=== PATIENT | female | born 1975 | race Caucasian/White ===

== ENCOUNTER → 2019-03-26 10:31 | Outpatient (BNVA) | payer OTHER, SELFPAY | PROVIDERS: Family Provider Nurse Practitioner Family; PCP Nurse Practitioner Family; Referring Provider Nurse Practitioner Family; Visit Provider Podiatrist Foot & Ankle Surgery | DX: M79.675 Pain in left toe(s) (principal); M79.674 Pain in right toe(s) | CPT/HCPCS: 73630 ==

== ENCOUNTER 2021-02-18 12:51 | Outpatient (CLI) | payer OTHER, SELFPAY ==
--- NOTE | 2021-02-18 12:57 | XR_ITS ---
WS: [id number] XR cervical spine fl/ex [id number] REASON FOR EXAM: CERVICALGIA FINDINGS: Mild reversal of the normal lordosis of the cervical spine from C2 to C7. No significant vertebral body compression deformity or other focal vertebral body abnormality. Moderate narrowing of the C5-C6 interspace and a more significant narrowing of the C6-C7 interspace w ith anterior osteophytic spurring. 2 mm of anterolisthesis of C3 on C4 and C4 on C5. No significant vertebral body motion on flexion and extension. XR/XR cervical spine fl/ex [id number] IMPRESSION: Degenerative spondylosis with malalignment of the cervical spine as above.
== END 2021-02-18 12:52 | disposition home or self-care (01) ==
LOC: RAD 12:54
PROVIDERS: PCP Nurse Practitioner Family; Visit Provider Nurse Practitioner
DX: M47.812 Spondylosis without myelopathy or radiculopathy, cervical region (principal)
CPT/HCPCS: 72040

== ENCOUNTER → 2021-04-21 11:28 | Outpatient (BNVA) | payer OTHER, SELFPAY | PROVIDERS: PCP Nurse Practitioner Family; Visit Provider Orthopaedic Surgery | DX: M47.892 Other spondylosis, cervical region (principal); M54.2 Cervicalgia | CPT/HCPCS: 72040 ==

== ENCOUNTER 2021-09-10 07:32 | Outpatient (CLI) | payer OTHER, SELFPAY ==
--- NOTE | 2021-09-10 08:00 | MR_ITS ---
WS: [id number] MRI CERVICAL SPINE NONCONTRAST HISTORY: neck pain COMPARISON: Radiograph 04/21/2021 Technique: Multiplanar, multisequence noncontrast imaging of the cervical spine. Straightening and slight reversal of the normal cervical lordosis. Reversal centered at the C5-6 leve l. Reversal is resulting also very slight posterior deviation of the cervical cord. There is a small amount of marrow edema in the adjacent endplates of C6 and C7. 3 and C4 anterolisthesis less than 2 m m. Signal within the cervical cord is normal. Visualized posterior fossa is unremarkable. Craniocervical junction, C1 and C2 relationship, odontoid process and soft tissues are normal. C2-C3: Normal. C3-C4: Small foraminal osteophytes with no stenosis. C4-C5: Mild osteophytic ridging. Slightly greater osteophyte on the LEFT but no significant stenosis. C5-C6: Mild annular disc bulging and very slight facet joint hypertrophy. Very small central central disc protrusion with bilateral foraminal osteophytes. There is cord contact on the ventral thecal sac with mild central and bilateral foraminal stenosis. C6-C7: Diffuse annular disc bulging and osteophytic ridging. Central disc protrusion with mild facet and ligamentum flavum hypertrophy. Mild to moderate central and bilateral foraminal stenosis with fac et arthritis. C7-T1: Normal. Paraspinal soft tissue are normal. MR/MR cervical spin wo con* [id number] IMPRESSION: 1. Reversal of the normal cervical lordosis resulting in slight posterior disp lacement of the cervical cord at the C5-6 level. 2. Mild to moderate central and bilateral foraminal stenosis at C6-7 due to a central disc protrusion, osteophyte disease and reversal of the lordosis. 3. Mild central and bilateral foraminal stenosis at C5-6.
== END 2021-09-10 07:33 | disposition home or self-care (01) ==
PROVIDERS: PCP Nurse Practitioner Family; Visit Provider Orthopaedic Surgery
DX: M47.22 Other spondylosis with radiculopathy, cervical region (principal); M48.02 Spinal stenosis, cervical region
CPT/HCPCS: 72141

== ENCOUNTER 2021-10-25 19:14 | Emergency (ER) | payer OTHER, SELFPAY ==
[2021-10-25 19:24] VITALS: BP 148/97; PULSE 73; RESP 16; TEMP 36.2; O2SAT 97
--- NOTE | 2021-10-25 20:08 | XRR_ITS ---
PROCEDURE INFORMATION: Exam: XR Thoracic Spine Exam date and time: 10/25/2021 8:16 PM Age: 46 years old Clinical indication: Injury or trauma; Fall; Blunt trauma (contusions or hematomas); Additional info: Fall injury TECHNIQUE: Imaging protocol: Radiologic exam of the thoracic spine. Views: 3 views. COMPARISON: MR cervical spin wo con* [id number] 09/10/2021 8:07 AM FINDINGS: Bones/joints: No acute fracture. Normal alignment. Soft tissues: Unremarkable. XR/XR thoracic spine 3V* [id number] IMPRESSION: No acute findings.
--- NOTE | 2021-10-25 20:08 | XRR_ITS ---
PROCEDURE INFORMATION: Exam: XR Lumbosacral Spine Exam date and time: 10/25/2021 8:16 PM Age: 46 years old Clinical indication: Injury or trauma; Fall; Blunt trauma (contusions or hematomas); Additional info: Fall injury TECHNIQUE: Imaging protocol: Radiologic exam of the lumbosacral spine. Views: 2 or 3 views. COMPARISON: No relevant prior studies available. FINDINGS: Bones/joints: No acute fracture. Normal alignment. Soft tissues: Unremarkable. XR/XR lumbar spine 2-3V* [id number] IMPRESSION: No acute findings.
--- NOTE | 2021-10-25 20:09 | ED_ITS ---
HPI - Back Pain/Injury General: Chief Complaint: Back Pain/Injury Stated Complaint: Fall, back pain Time Seen by Provider: 10/25/21 20:04 History of Present Illness: 46-year-old female comes in today for complaints of a fall yesterday evening at [facility]. Since then patient has had mid to low back pain. Patient is ambulatory. Patient does have a history of low back pain. Patient appears nontoxic. Patient appears in mild pain at rest. Patient takes Prozac routinely. Patient does not take any other medications routinely. 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 Physical Exam Const: COMMON NORMALS: alert Neck/C-Spine: CERVICAL SPINE: Yes cervical ROM normal and No Cervical spine tenderness Chest: COMMONS NORMALS: normal palpation of entire chest wall Resp: COMMON NORMALS: normal respiratory effort Cardio: COMMON NORMALS: regular rate RATE: regular rate Back/Pelvis: THORACIC SPINE/UPPER BACK: Yes thoracic spinal tenderness T-spine tenderness location: T8 and T9 and Yes paraspinal muscle tenderness LUMBAR SPINE/LOWER BACK: Yes lumbar spinal tenderness Lumbar spinal tenderness location: L5 and Yes paraspinal muscle tenderness Neuro: SENSORIUM/ORIENTATION: Yes alert Skin: COMMON NORMALS: no rashes or lesions noted GENERAL SKIN EXAM: no rashes or lesions noted Course Vital Signs: Vital signs: Vital Signs Temperature 97.1 F L 10/25/21 19:24 Pulse Rate 73 10/25/21 19:24 Respiratory Rate 16 10/25/21 19:24 Blood Pressure 148/97 10/25/21 19:24 Pulse Oximetry 97 10/25/21 19:24 Oxygen Delivery Me thod 10/25/21 19:24 MDM - Back Pain/Injury Medical Decision Making 46-year-old female comes in today for evaluation of injury sustained during a fall last night at [facility]. Patient reports she was caring toilet paper when she slipped on a wet spot causing her to land on her buttocks and back. On exam patient has muscle tenderness in the thoracic and lumbar area of the back. Patient moves all extremities well. Patient appears nontoxic. Vital signs are normal except for some mild elevation of blood pressure of a systolic of 148. Differential diagnosis includes contusion, strain, intervertebral disc disease, facet arthropathy, vertebral fracture. X-rays of the thoracic and lumbar spine noted no acute abnormalities. Recommend pain medication and activity as tolerated. Patient reported understanding and agreed to plan. Recommend follow-up with primary care for persistent or worsening symptoms or return to the ER. Patient stated understanding. Labs Radiology Impressions Lumbar Spine X-Ray 10/25/21 20:08 IMPRESSION: No acute findings. Thoracic Spine X-Ray 10/25/21 20:08 IMPRESSION: No acute findings. Discharge Plan Discharge Patient Disposition: Home Clinical Impression: Fall Qualifiers: Encounter type: initial encounter Qualified Code(s): W19.XXXA - Unspecified fall, initial encounter Back pain Qualifiers: Back pain location: back pain in unspecified location Chronicity: acute Back pain laterality: unspecified Qualified Code(s): M54.9 - Dorsalgia, unspecified Condition: Stable Prescriptions: New naproxen 500 mg tablet 500 mg PO BID Qty: 20 0RF hydrocodone-acetaminophen 5-325 mg tablet 1 tab PO Q6H PRN (Reason: pain (scale score 7-10)) Qty: 12 0RF No Action norethindrone (contraceptive) [Johanna] 0.35 mg tablet 0.35 mg PO DAILY fluoxetine [Prozac] 20 mg capsule 20 mg PO DAILY diphenhydramine-acetaminophen [Tylenol PM Extra Strength] 25-500 mg tablet 1 tab PO Q6H PRN Discharge Orders: Discharge ED (Routine); Ordered 10/25/21 Ordered By: Renato Pinedo Referrals: Aden Harrison FNP [Primary Care Provider] - Discharge Diet: Usual diet Discharge Activity: Increase activity as tolerated Patient Instructions: Back Pain (ED) Activity Restrictions/Additional Instructions: Activity as tolerated. Gentle stretching and range of motion exercises. Use of naproxen and acetaminophen to control pain. Take the naproxen 500 mg twice daily regularly for pain and inflammation. Do not use naproxen with ibuprofen. Use acetaminophen as needed for mild to moderate pain. Use hydrocodone for moderate to severe pain. Follow-up with primary care for further instructions. Return to ER for new concerns, or worsening symptoms such as high fever, uncontrolled back pain, or loss of bowel or bladder control. Coding Level of Care Code ED All Source Collection Manager for Wesg Fwd Exam Detailed
[2021-10-25] MEDS: HYDROcodone-acetaminophen 5-325 mg Tablet 1 TAB PO (20:41)
[2021-10-25] MEDS: ketorolac 30 mg/mL INJ IM (20:41)
== END 2021-10-25 21:18 | disposition home or self-care (01) ==
PROVIDERS: Emergency Provider Nurse Practitioner Family; PCP Nurse Practitioner Family
DX: M54.9 Dorsalgia, unspecified (principal); Z87.891 Personal history of nicotine dependence; W19.XXXA Unspecified fall, initial encounter; Y92.512 Supermarket, store or market as the place of occurrence of the external cause
CPT/HCPCS: 72072; 72100; 96372; 99284; J1885

== ENCOUNTER 2021-11-11 05:52 | Day surgery (SDC) | payer OTHER, SELFPAY ==
[2021-11-06 11:08] VITALS: BMI 38.2
--- NOTE | 2021-11-06 14:49 | ANES.PREANE2 ---
Pre-Anesthetic Assessment Height/Weight: Height 1.65 m Weight 104.326 kg Preop Diagnosis: Cervical spondylosis with myelopathy Operation Date: 11/11/21 07:00 Proposed Procedures p ACDF C4/5C5/6 C6/7 [id number]/M47.12(Not Applicable) - Eliud Arevalo DO Familial anesthetic complications: none Was Beta Jean Paul taken within 24 hours: N/A Was Clonidine taken within 24 hours: N/A Social No alcohol and No tobacco (h/o smokling quit recently) Exam alert, oriented x 3 and regular rate & rhythm Airway Submandibular: within normal limits Cervical ROM: within normal limits Mallampati: Class II Dentition: false (upper) Comments: Comments: missing most on lower arch Metabolic Morbid Obesity Musc/skel Osteoarthritis/DJD Neuropsych Anxiety and Depression Anesthetic Plan ASA status: 3 Anesthesia: General Medications/Allergies Home Medications Medication Instructions Recorded Confirmed Last Taken Type fluoxetine 20 mg capsule (Prozac) 20 mg PO DAILY 09/17/21 11/06/21 Unknown History hydrocodone 5 mg-acetaminophen 325 1 tab PO Q6H PRN pain (scale score 10/25/21 11/06/21 Unknown Rx mg tablet 7-10) #12 tabs naproxen 500 mg tablet 500 mg PO BID #20 tabs 10/25/21 11/06/21 Unknown Rx Allergies Allergy/AdvReac Type Severity Reaction Status Date / Time No Known Allergies Allergy Verified 10/25/21 19:28 [facility] Anesthesia Surgical History History of bilateral breast reduction surgery 1994 History of cholecystectomy 2010 Social History Smoking and tobacco status: former smoker (2 years ) Alcohol intake: never Current occupational status: employed 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
[2021-11-11] VITALS (24 sets, daily range): BP systolic 98–151; BP diastolic 60–101; PULSE 68–84; RESP 10–23; TEMP 36.1–36.9; O2SAT 87–99
--- NOTE | 2021-11-11 | XR_ITS ---
WS: [id number] XR cervical spine 3V* [id number] REASON FOR EXAM: c4-5, c5-6, c6-7 acdf FINDINGS: Anterior plate and screw fixation with interbody fusion devices at C4-C7. Surgical appliances are in proper position and alignment. XR/XR cervical spine 3V* [id number] IMPRESSION: Postoperative cervical spine with no abnormality as above.
--- NOTE | 2021-11-11 | SCC_ITS ---
Procedure done: 1. Anterior diskectomy C4/5 2. Anterior diskectomy C5/6 3. Anterior discectomy C6/7 4. Insertion of cage C4/5 5. Insertion of cage C5/6 6. Insertion of Cage C6/7 7. Instrumentation with anterior plate from C4-C7 8. Use of allograft 14.4 seconds of fluoroscopic guidance, for a cumulative dose of 1.53 mGy, was provided to Dr. Arevalo by the radiology department. C-arm images of the cervical spine were saved for the patient's permanent record. JAYDA
--- NOTE | 2021-11-11 06:27 | P.ANESUD_ITS ---
Pre-Anesthetic Update Pre-Anesthetic Assessment: Date of Surgery/Procedure: 11/11/21 Preop Starr gnosis: Cervical spondylosis with myelopathy Proposed Procedure: Operation Date: 11/11/21 07:00 Proposed Procedures p ACDF C4/5C5/6 C6/7 [id number]/M47.12(Not Applicable) - Eliud Arevalo, DO Any changes to Pre-Anesthetic Assessment?: No Exam: Pre-Anes Outpt Exam: alert, oriented x 3, clear to auscultation bilaterally and regular rate & rhythm Additional Exam Findings (including area of procedure): Patient revealed today that she had a sister who on the table from . Plan non triggering anesthetic, prepare room for . Cardiac Studies: No Data to Display
--- NOTE | 2021-11-11 06:43 | P.HP_ITS ---
Providers/Chief Complaint Primary Care Provider: BRIANA Rowell Chief Complaint: ACDF C4/5C5/6 C6/7 [id number] History of Present Illness Hanh Deng is a 46 year old female cervical neck pain. She states the pain in her neck radiates to her arms and to her shoulder blades. She reports problems with balance. She has recent MRI and is here to go over results and further treatment plan. Chief Complaint: neck pain Onset: years Duration: years Characteristics: ache, numbness Severity: 310 Location: neck Radiating symptoms: numbness to bilateral hands with left being worse, Aggravating factors: Alleviating factors: rest Neuro deficits: denies numbness, tingling, weakness, incontinence of bowel/bladder, saddle anesthesia. Prior tx: Dr. Eliot PERRY? in April 2021 80% relief Review of Systems General: Reports: 10 or more systems reviewed and unremarkable except in HPI and below Const: Denies: fever(s), chills or body aches Card: Denies: chest pain or orthopnea Resp: Denies: dyspnea, productive cough or wheezing GI: Denies: abdominal pain, nausea or vomiting Musc: Reports: neck pain Skin/Breast: Denies: changes in skin color or dry skin Neuro: Reports: numbness in extremities; Denies: weakness in extremities Psych: Denies: anxiety Keenan/Lymph: Denies: easy bruising or easy bleeding Medications/Allergies Home Medications Medication Instructions Recorded Confirmed Last Taken Type fluoxetine 20 mg capsule (Prozac) 20 mg PO DAILY 09/17/21 11/11/21 11/11/21 History hydrocodone 5 mg-acetaminophen 325 1 tab PO Q6H PRN pain (scale score 10/25/21 11/11/21 11/04/21 Rx mg tablet 7-10) #12 tabs naproxen 500 mg tablet 500 mg PO BID #20 tabs 10/25/21 11/11/21 11/05/21 Rx Allergies Allergy/AdvReac Type Severity Reaction Status Date / Time No Known Allergies Allergy Verified 10/25/21 19:28 PFSH Acute PFSH: Surgical History History of bilateral breast reduction surgery 1994 History of cholecystectomy 2010 Social History Smoking and tobacco status: former smoker (2 years ) Alcohol intake: never Current occupational status: employed 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 CARDIAC: Regular rate and rhythm. CHEST: Normal inspiratory effort, normal respiratory rate. ABDOMEN: Soft and nontender. SKIN: Clear, warm and intact. NEURO?PSYCH: The patient is alert and oriented to person, place and time. Sensorv /SILT Motor StrengthShoulder abduction C5 5/5Wrist extension C6 5/5Elbow extension C7 5/5Hand Ham Pumper C8 5/5Finger abduction T15/5 Radial/ Ulnar/ Median n intact LowerSensory (SILT)Motor StrengthHin flexion L2/3Ant/inner thigh 5/5Hip adduction L2/3 5/5Knee extension L4 Lat thigh, 5/5Toe dorsiflexion L5 5/5Ankle dorsiflexion L5/ A56Tcooqbs flexion S1 5/5 DTRBleeps 2+Triceps 2+Brachioradialis 2+Patellar 2+Achilles 2+ MUSCULOSKELETAL: [] UPPEREXTREMITIES: The patient had full active ROM in fingers, wrist, elbow, and shoulder. The patient demonstrated ability to fully flex/extend/abduct/adduct fingers, make ok sign, cross 2nd/3rd digits, extend 1st digit fully.. Radial pulse 2+, CR<2 seconds. LOWER EXTREMITIES: Pt has full, active ROM of toes, ankle, knee, and hip. Dorsalis pedis/posterior tibialis pulses 2+, CR<2 seconds. SPINE: Skin warm, dry, intact. A&P Assessment and plan (1) Cervical spondylosis with myelopathy: ACDF today Attestations Medical Necessity Statement*: failed conservative tx Coding Level of Care Code Acute Dressmaker Garment Fitter for Chg Fwd Diagnoses Cervical spondylosis with myelopathy M47.12
[2021-11-11] MEDS: sodium chloride 0.9% 1,000 ML 30 ML IV (06:44)
[2021-11-11] MEDS: ceFAZolin 2,000 MG in sodium chloride 0.9% (plus) 50 ML 100 MG IV (07:35)
--- NOTE | 2021-11-11 08:39 | SUR.OPER ---
0839 attempted to contact family via phone, no voicemail set up
--- NOTE | 2021-11-11 10:17 | P.OP_ITS ---
Operative Report Date of procedure: November 11, 2021 Pre-op diagnosis: Preop Diagnosis Cervical spondylosis with myelopathy Post-op diagnosis: same Procedure done: 1. Anterior diskectomy C4/5 2. Anterior diskectomy C5/6 3. Anterior discectomy C6/7 4. Insertion of cage C4/5 5. Insertion of cage C5/6 6. Insertion of Cage C6/7 7. Instrumentation with anterior plate from C4-C7 8. Use of allograft Surgeon: Eliud Arevalo Medical Education Manager: Jorge San Medical Education Manager: The surgical aide, Jorge San, PAC was needed for his expertise under the microscope. He was important and necessary throughout the procedure to complete in a safe and timely manner. He assisted with patient positioning prepping and draping tissue retraction suctioning of the operative field protection of the dural sac and tissue closure Estimated blood loss (mL): 10 Procedure: 1. Anterior diskectomy C4/5 2. Anterior diskectomy C5/6 3. Anterior discectomy C6/7 4. Insertion of cage C4/5 5. Insertion of cage C5/6 6. Insertion of Cage C6/7 7. Instrumentation with anterior plate from C4-C7 8. Use of allograft The patient was taken to the operating room, where he underwent general endotracheal anesthesia without complications. He was then positioned supine on the operating table, and all areas of impingement were well padded. The arms were carefully padded and tucked at his sides. A roll was placed between the shoulder blades.. An x-ray was done to determine the appropriate level for the skin incision. The entire neck was then sterilely prepped and draped in the usual fashion. Neuromonitoring was attached prior to prepping. A transverse skin incision was made and carried down to the platysma muscle. This was then split in line with its fibers. Blunt dissection was carried down medial to the carotid sheath and lateral to the trachea and esophagus until the anterior cervical spine was visualized. A needle was placed into a disc and an x -ray was done to determine its location. The longus colli muscles were then elevated bilaterally with the electrocautery unit. Self-retaining retractors were placed deep to the longus colli muscle. Attention was brought to the C4/5 level that was confirmed on x-ray. A caspar pin was placed into the C4 vertebrae and the C5 vertebrae. The disk space was then distracted. The microscope was then brought in. A radical anterior discectomies were performed at C4/5. This included complete removal of the anterior annulus, nucleus, and posterior annulus. The posterior longitudinal ligament was removed as were the posterior osteophytes. Foraminotomies were then accomplished bilaterally. This was done using a high speed azalea, kerrison rongeurs and curretes Once all of this was accomplished, the curved currette was used to check for any residual compression. The central canal was wide open as were the foramen. A high-speed bur was used to remove the cartilaginous endplates above and below the interspace. Bleeding cancellous bone was exposed. The disc space were measured and appropriate size cage were placed sterilely onto the field. Allograft graft was packed into the cages. The cage was then placed and there was good juxtaposition against the bleeding decorticated surfaces and good distraction of each interspace. Attention was brought to the next interspace. The Holton pins were removed. Bone wax was used to prevent any bleeding from occurring at the pin sites. Attention was brought to the C5/6 level that was confirmed on x-ray. A caspar pin was placed into the C5 vertebrae and the C6 vertebrae. The disk space was then distracted. The microscope was then brought in. A radical anterior discectomies were performed at C5/6. This included complete removal of the anterior annulus, nucleus, and posterior annulus. The posterior longitudinal ligament was removed as were the posterior osteophytes. Foraminotomies were then accomplished bilaterally. This was done using a high speed azalea, kerrison rongeurs and curretes Once all of this was accomplished, the curved currette was used to check for any residual compression. The central canal was wide open as were the foramen. A high-speed bur was used to remove the cartilaginous endplates above and below the interspace. Bleeding cancellous bone was exposed. The disc space were measured and appropriate size cage were placed sterilely onto the field. Allograft graft was packed into the cages. The cage was then placed and there was good juxtaposition against the bleeding decorticated surfaces and good distraction of each interspace. Attention was brought to the next interspace. The Holton pins were removed. Bone wax was used to prevent any bleeding from occurring at the pin sites. Attention was brought to the C6/7 level that was confirmed on x-ray. A caspar pin was placed into the C6 vertebrae and the C7 vertebrae. The disk space was then distracted. The microscope was then brought in. A radical anterior d iscectomies were performed at C6/7. This included complete removal of the anterior annulus, nucleus, and posterior annulus. The posterior longitudinal ligament was removed as were the posterior osteophytes. Foraminotomies were then accomplished bilaterally. This was done using a high speed azalea, kerrison rongeurs and curretes Once all of this was accomplished, the curved currette was used to check for any residual compression. The central canal was wide open as were the foramen. A high-speed bur was used to remove the cartilaginous endplates above and below the interspace. Bleeding cancellous bone was exposed. The disc space were measured and appropriate size cage were placed sterilely onto the field. Allograft graft was packed into the cages. The cage was then placed and there was good juxtaposition against the bleeding decorticated surfaces and good distraction of each interspace. Attention was brought to the next interspace. The Holton pins were removed. Bone wax was used to prevent any bleeding from occurring at the pin sites. The appropriate size anterior cervical locking plate was chosen and bent into gentle lordosis. Two screws were then placed into each of the vertebral bodies at C4,C5,C6 and C7. There was excellent purchase. A final x-ray was done confirming good position of the hardware and Cages. The locking screws were then applied, also with excellent purchase. Following a final copious irrigation, there was good hemostasis and no dural leaks. The carotid pulse was strong. The wounds were then closed in layers using 2-0 Vicryl suture for the platysma muscle, 2-0 Vicryl suture for the subcutaneous tissue, and 4-0 monocryl suture in a subcuticular skin closure. Glue was placed followed by application of a sterile dressing. The drain was hooked to bulb suction. A soft collar was applied. The patient was then carefully returned to the supine position on his hospital bed where he was reversed and extubated and taken to the recovery room having tolerated the procedure well.
--- NOTE | 2021-11-11 10:22 | PC.NURSE ---
follows commands. bilateral scrum coach strength equal/strong. pedal pulses present, color pink, dorsiflexion/extension equal/strong bilaterally. able to wiggle toes, no complaint of numbness or tingling.
--- NOTE | 2021-11-11 11:35 | SUR.EXTENDED ---
Right wrist arterial line discontinued at 1115 with assistance from Yeison Reynoso RN. pressure bag depressurized, blood drawn into line approximately 5 ml from patient. Pressure held on insertion site for 5 min after applying 4 4x4 guaze and coban. after 5 min of pressure cap refill present, color pink, no numbness/tingling reported by patient.
[2021-11-11] MEDS: HYDROcodone-acetaminophen 10-325 mg Tablet 1 TAB PO (14:08)
--- NOTE | 2021-11-11 16:37 | ANE.PACU2 ---
Inpatient post-anesthesia follow up: Airway intact: Yes Vital signs: Temperature 97.6 F Pulse Rate 77 Respiratory Rate 18 Blood Pressure 132/86 Pulse Oximetry 94 Oxygen Delivery Me thod Room Air Oxygen Flow Rate 3 Fraction of Inspir ed Oxygen Hydration adequate: Yes Nausea and vomiting: No Pain level: 1 Mental status: Baseline
== END 2021-11-11 14:15 | disposition home or self-care (01) ==
PROVIDERS: PCP Nurse Practitioner Family; Visit Provider Orthopaedic Surgery
PROC: 0RB30ZZ Excision of Cervical Vertebral Disc, Open Approach (ICD-10-PCS; CPT 22551; principal; 2021-11-11 07:00)
DX: M47.12 Other spondylosis with myelopathy, cervical region (principal); E66.01 Morbid (severe) obesity due to excess calories; Z68.38 Body mass index [BMI] 38.0-38.9, adult; Z87.891 Personal history of nicotine dependence
CPT/HCPCS: 20930; 22551; 22552 ×2; 22853 ×3; 51702; 72040; 76000; 97110; C1713; C9359; J0330; J1100; J1170; J1200; J2250; J2405; J2704; J2710; J3010; J3490; J7030; L0174

== ENCOUNTER → 2021-11-17 10:16 | Outpatient (BNVA) | payer OTHER, SELFPAY | PROVIDERS: PCP Nurse Practitioner Family; Visit Provider Nurse Practitioner Family | DX: M79.642 Pain in left hand (principal) | CPT/HCPCS: 73130 ==

== ENCOUNTER → 2021-11-26 10:32 | Outpatient (BNVA) | payer OTHER, SELFPAY | PROVIDERS: PCP Nurse Practitioner Family; Visit Provider Physician Assistant | DX: Z47.89 Encounter for other orthopedic aftercare (principal); Z98.1 Arthrodesis status | CPT/HCPCS: 72040 ==

== ENCOUNTER → 2021-12-29 09:40 | Outpatient (BNVA) | payer OTHER, SELFPAY | PROVIDERS: PCP Nurse Practitioner Family; Visit Provider Physician Assistant | DX: Z47.89 Encounter for other orthopedic aftercare (principal); Z98.1 Arthrodesis status | CPT/HCPCS: 72040 ==

== ENCOUNTER → 2022-02-09 10:15 | Outpatient (BNVA) | payer OTHER, SELFPAY | PROVIDERS: PCP Nurse Practitioner Family; Visit Provider Physician Assistant | DX: M25.811 Other specified joint disorders, right shoulder (principal); Z98.1 Arthrodesis status | CPT/HCPCS: 72040 ==

== ENCOUNTER → 2022-03-23 10:02 | Outpatient (BNVA) | payer OTHER, SELFPAY | PROVIDERS: PCP Nurse Practitioner Family; Visit Provider Physician Assistant | DX: M47.816 Spondylosis without myelopathy or radiculopathy, lumbar region (principal) | CPT/HCPCS: 72110 ==

== ENCOUNTER 2022-03-29 10:43 | Outpatient (CLI) | payer OTHER, SELFPAY ==
--- NOTE | 2022-03-29 11:00 | MR_ITS ---
WS: [id number] MRI RIGHT SHOULDER HISTORY: right shoulder pain COMPARISON: None available. TECHNIQUE: Multiplanar sequences of the shoulder joint are submitted. Mild AC joint arthritis. Very slight encroachment upon the supraspinatus muscle and tendon. There is a large osteophyte from the distal undersurface of the acromion measuring 9 x 4 mm with moderate suba cromial impingement. There is a small amount of fluid in the subacromial and subdeltoid bursa. No os acromion. Biceps tendon is in the bicipital groove. No muscle atrophy or edema. Very mild tendinopathy in the distal supraspinatus tendon. This is close to the interdigitation with the subscapularis tendon. No full-thickness tear is identified. No joint effusion. Mild fraying involving the superior labrum. Very small tear is not excluded. The increased signal does not extend completely through the labrum. MR/MR shoulder RT wo con* [id number] IMPRESSION: 1. Moderate subacromial impingement due to a 9 x 4 mm osteophyte from the dist al undersurface of the acromion. 2. Mild AC joint arthritis. 3. Focal tendinopathy distal supraspinatus tendon near the interdigitation's w ith the subscapularis tendon. No tendon tear identified.
== END 2022-03-29 10:44 | disposition home or self-care (01) ==
LOC: RAD 10:49
PROVIDERS: PCP Nurse Practitioner Family; Visit Provider Physician Assistant
DX: M13.811 Other specified arthritis, right shoulder (principal); M25.811 Other specified joint disorders, right shoulder
CPT/HCPCS: 73221

== ENCOUNTER 2023-01-06 15:50 | Outpatient (CLI) | payer OTHER, SELFPAY ==
--- NOTE | 2023-01-06 16:00 | MR_ITS ---
WS: [email or web address] MRI LUMBAR SPINE NONCONTRAST HISTORY: BACK PAIN, pain down RIGHT leg. COMPARISON: None available. TECHNIQUE: Sagittal and axial multisequence imaging is submitted. Prior anterior cervical fusion. Normal lumbar alignment with no compression fractures or marrow edema. Disc spaces and vertebral body heights are well-preserved. Hemangioma L1. Hemangioma at S2. Conus terminates normally at L1-2 disc level. L1-L2: Normal. L2-L3: Very mild ligamentum flavum and facet arthritis. L3-L4: Mild bilateral ligamentum flavum and facet arthritis. No disc protrusion or herniation. L4-L5: Mild annular disc bulging with mild ligamentum flavum and facet arthritis. There is mild disc encroachment upon the traversing L5 nerve roots but no high-grade stenosis or displacement. Very mild foraminal narrowing. L5-S1: Mild annular disc bulging. No significant stenosis or disc protrusions. Mild facet arthritis. Paravertebral soft tissues are normal. IMPRESSION: 1. No lumbar spine fracture. 2. No significant central or foraminal stenosis. 3. Mild disc bulging encroaching upon the traversing L5 nerve roots with mild bilateral foraminal alex rowing at L4-5.
== END 2023-01-06 15:51 | disposition home or self-care (01) ==
LOC: RAD 15:52
PROVIDERS: PCP Nurse Practitioner Family; Visit Provider Physician Assistant
DX: M47.816 Spondylosis without myelopathy or radiculopathy, lumbar region (principal); M51.36 Other intervertebral disc degeneration, lumbar region
CPT/HCPCS: 72148

== ENCOUNTER 2024-12-25 10:08 | Outpatient (CLI) | payer BC, SELFPAY ==
--- NOTE | 2024-12-25 10:15 | MR_ITS ---
WS: [email or web address] MRI BRAIN WITH AND WITHOUT CONTRAST HISTORY: I99.8 - Other disorder of circulatory system COMPARISON: None available. TECHNIQUE: Multiplanar imaging performed through the brain with MultiHance 20 ml's IV. No acute infarcts are seen. Knox-white matter differentiation is well preserved. Mild bifrontal lobe atrophy. Scattered subcortical T2 and FLAIR signal hyperintensities predominantly in the frontal lobes. Due to the location these may be related to prior trauma. Additional mild periventricular increased T2 and FLAIR signal. These findings are most likely from small vessel disease. No hemorrhage associated with the frontal lobe signal abnormalities. Single susceptibility artifact in the posterior fossa along the superior mid RIGHT cerebellum. Ventricles and extra-axial spaces are normal. Clivus and pituitary gland are normal. No inferior displacement of the cerebellar tonsils. Postcontrast images are negative for masses or vascular malformations. Dural venous sinuses are normal. Paranasal sinuses: Well aerated with no significant disease. Mastoid air cells: Normal. Calvarium and scalp: Normal. MR/MR head wo/w con [id number] IMPRESSION: 1. No acute infarct. No prior large territory infarct. 2. Subcortical T2 and FLAIR signal hyperintensities in the anterior frontal lo bes. Signal abnormalities in this location may be due to prior trauma and head injury. 3. Additional mild periventricular small vessel changes. 4. Single hemosiderin focus in the superior RIGHT posterior fossa. 5. No enhancing masses or vascular malformations.
[2024-12-25] MEDS: gadobenate dimeglumine 20 mL vial IV (11:13)
== END 2024-12-25 10:09 | disposition home or self-care (01) ==
LOC: RAD 10:08
PROVIDERS: PCP Nurse Practitioner Family; Visit Provider Specialist
DX: I99.8 Other disorder of circulatory system (principal); G31.89 Other specified degenerative diseases of nervous system; R93.0 Abnormal findings on diagnostic imaging of skull and head, not elsewhere classified
CPT/HCPCS: 70553